=== PATIENT | male | born 1985 | race Caucasian/White ===

== ENCOUNTER 2019-08-31 15:06 | Inpatient (IN) | payer OTHER ==
[~2019-08-31] VITALS: Ht 177.8 cm; Wt 65.1 kg
--- NOTE | 2019-08-31 16:10 | NUR ---
A 34, admitted to , under the services of GARETT Hodgson DO with a diagnosis of OPIATE WITHDRAWAL. Chief complaint is OPIATE WITHDRAWAL. [place] Monitor applied. Initial assessment completed. Vital signs taken and recorded. GARETT HODGSON DO notified of admission to the unit. Orders received. See assessment for past medical history, medications and allergies. Patient and/or family oriented to unit. [facility] policy reviewed. Clothing/patient valuable form completed. GEORGIE NAVAS
--- NOTE | 2019-08-31 16:29 | NUR ---
DR BURKETT IN TO SEE PATIENT AT THIS TIME
--- NOTE | 2019-08-31 16:59 | NUR ---
PATIENT MEETS [facility]. CINA=[id number]. PATIENT IS GOING TO FOLLOW UP WITH [facility] FOR HIS AFTERCARE PLAN. GEORGIE APPLE B.A. COLORED LIQUID PLASTIC APPLIER
[2019-08-31 17:09] VITALS: BP 150/90
--- NOTE | 2019-08-31 17:12 | NUR ---
PT STATES THAT HE DOES NOT WANT/NEED HIS SUBUTEX AT THIS TIME, THAT HE WILL NOT NEED ANYTHING FOR A WHILE, JUST HIS ATIVAN. CALL LIGHT WITHIN REACH, WILL CONTINUE TO MONITOR
[2019-08-31 17:16] LABS: BASO % 0.5 % (0.0-1.0); EOS # 0.1 10*3/uL (0.0-0.4); EOS % 1.3 % (1.0-4.0); HEMATOCRIT 38.9 % (42.0-52.0); LYMPH # 1.2 10*3/uL (1.3-4.4); LYMPH % 15.1 % (27.0-41.0); MEAN CELL VOLUME 87.6 fl (80.0-94.0); MEAN CORPUSCULAR HGB 29.7 pg (27.0-31.0); MEAN CORPUSCULAR HGB CONC 33.9 g/dl (33.0-37.0); MEAN PLATELET VOLUME 8.6 fl (9.6-12.3); MONO # 0.5 10*3/uL (0.1-1.0); MONO % 6.6 % (3.0-9.0); NEUT # 6.1 10*3/uL (2.3-7.9); PLATELET COUNT AUTOMATED 260 10*3/uL (130-400); RED BLOOD COUNT 4.44 10*6/uL (4.50-5.90); RED CELL DISTRI WIDTH 11.9 % (0-14.5)
[2019-08-31 17:28] LABS: BILIRUBIN NEGATIVE (NEGATIVE); CLARITY CLEAR (CLEAR); COLOR YELLOW (YELLOW); GLUCOSE NEGATIVE (NEGATIVE); KETONE NEGATIVE (NEGATIVE)
[2019-08-31 17:29] LABS: BACTERIA 1+; BLOOD NEGATIVE (NEGATIVE); EPITHELIAL CELLS 0-2; LEUKO ESTERASE TRACE (NEGATIVE); MUCOUS 1+; NITRITE NEGATIVE (NEGATIVE); PH 8.5 (5.0-9.0); UROBILINOGEN 0.2 E.U./dl (0.2-1.0)
[2019-08-31 17:32] LABS: ALBUMIN 3.5 gm/dl (3.1-4.5); BUN 6 mg/dl (7-24); CHLORIDE 100 mmol/L (98-107); POTASSIUM 3.9 mmol/L (3.5-5.1); SODIUM 134 mmol/L (136-145)
[2019-08-31 17:36] LABS: ALKALINE PHOSPHATASE 65 U/L (45-117); SGOT/AST 27 IU/L (3-35); SGPT/ALT 37 U/L (12-78); TOTAL PROTEIN 7.1 gm/dL (6.4-8.2)
[2019-08-31 17:38] LABS: ETHYL ALCOHOL < 3.0 mg/dl (<3)
[2019-08-31 19:49] LABS: URINE AMPHETAMINES > 1000 (1000ng/ml); URINE BARBITURATES < 200 (200ng/ml); URINE BENZODIAZEPINES < 200 (200ng/ml); URINE CANNABINOIDS (THC) < 50 (50ng/ml); URINE COCAINE > 300 (300ng/ml); URINE METHADONE < 300 (300ng/ml); URINE OPIATES < 300 (300ng/ml)
[2019-08-31 19:51] LABS: URINE PHENCYCLIDINE < 25 (25ng/ml)
[2019-08-31 20:00] VITALS: BP 156/94
[2019-08-31 20:30] VITALS: BP 144/88
[2019-09-01] VITALS (7 sets, daily range): BP systolic 119–144; BP diastolic 75–97
--- NOTE | 2019-09-01 | NUR ---
PATIENT ATTENDANT SAID WHEN SHE WENT TO DO PATIENT TEMPERATURE PATIENT "SWATTED" AT THE THERMOMETER WHEN SHE ATTEMPTED TO TAKE PATIENT TEMP. PATIENT ACTING LIKE HE'S REALLY OUT OF IT.
--- NOTE | 2019-09-01 03:00 | NUR ---
Patient awakend enough to follow commands to do blood pressure and other vital signs but would not speak to me nor would he wake up enough to take ativan or subutex both meds refused by patient.
--- NOTE | 2019-09-01 04:13 | NUR ---
24 HR chart check completed.
--- NOTE | 2019-09-01 06:11 | NUR ---
PATIENT AWAKE AND TALKING NOW, FEELING "A LITTLE BAD" PER PT. AND IS WILL TO TAKE SUBUTEX. SUBUTEX GIVEN AND DOSE TIMES CHANGED. PT. BACK TO BED.
--- NOTE | 2019-09-01 08:49 | NUR ---
PRN MEDS GIVEN FOR MULTIPLE COMPLAINTS OF ANXIETY, RESTLESS LEGS, AND MUSCLE ACHES. SEE MAR. WILL MONITOR. CALL LIGHT IN REACH.
--- NOTE | 2019-09-01 09:36 | NUR ---
SLEEPING, NO SXS OF DISTRESS NOTED. RESPERATIONS EASY/REGULAR ON ROOM AIR. PRN MEDS SEEM TO BE EFFECTIVE. CALL LIGHT IN REACH.
--- NOTE | 2019-09-01 14:28 | NUR ---
CONTINUED COMPLAINTS OF RESTLESS LEGS. ROBAXIN AND VISARIL GIVEN FOR BODY ACHES AND ANXIETY. CALL LIGHT IN REACH, WILL MONITOR.
--- NOTE | 2019-09-01 15:04 | NUR ---
KD STAFF IN TO SEE PATIENT. PATIENT HAS BEEN ACCEPTED TO [facility] FOR HIS AFTERCARE PLAN. THE FACILITY WILL PROVIDE TRANSPORTATION. PATIENT IS SCHEDULED FOR [facility] ON WEDNESDAY, August. PATIENT AGREES AND UNDERSTANDS HIS AFTERCARE PLAN. GEORGIE APPLE B.A. SALES ORDER SPECIALIST
--- NOTE | 2019-09-01 15:17 | NUR ---
STILL COMPLAINTS OF RESTLESS LEGS BUT STATES PRN MEDS WERE SOMEWHAT HELPFUL. INFORMED THE NEXT REQUIP WILL BE GIVEN TONIGHT IT IS Q12H. CALL LIGHT IN REACH. NO FURTHER COMPLAINTS VOICED.
--- NOTE | 2019-09-01 19:33 | NUR ---
C/O MUSCLE ACHES, ANXIOUS AND SWEATY. MOTRIN ATIVAN GIVEN FOR WITHDRAWL SYMPTOMS. SEE MAR.
--- NOTE | 2019-09-01 20:36 | NUR ---
PER PT. MOTRIN AND ATIVAN HAVE NOT HELPED PATIENT LEGS TWITCHING AND PATIENT VISUALLY ANXIOUS.
--- NOTE | 2019-09-01 21:15 | NUR ---
PT. STILL ANXIOUS AND LEGS MOVING AROUND. VISTARIL AND TRAZADONE GIVEN PER ORDER FOR ANXIETY AND TO HELP PATIENT SLEEP.
--- NOTE | 2019-09-01 22:15 | NUR ---
VISTARIL AND TRAZADONE HELPING REDUCE ANXIETY.
--- NOTE | 2019-09-01 23:55 | NUR ---
24 HR chart check completed.
[2019-09-02] VITALS: BP 124/74
--- NOTE | 2019-09-02 02:35 | NUR ---
PATIENT RESTING EASILY AWAKEND. LEGS MOVING ALL OVER. C/O ANIETY. ATIVAN WAS GIVEN ALONG WITH ROBAXIN FOR MUSCLE ACHES.
--- NOTE | 2019-09-02 03:35 | NUR ---
ROBAXIN HELPING WITH MUSCLE ACHES AND ATIVAN HELPING WITH ANXIETY PER PT.
--- NOTE | 2019-09-02 05:17 | NUR ---
VISTARIL GIVEN PER ORDER FOR BREAKTHROUGH ANXIETY ALONG WITH SUBUTEX. EXPLAINED SUBUTEX TAPER AND THAT HE CAN HAVE ATIVAN/REQUIP/ROBAXIN AT 0830 AND HE VOICED UNDERSTANDING.
--- NOTE | 2019-09-02 06:15 | NUR ---
VISTARIL HELPING WITH ANXIETY BUT PATIENT STILL HAVING SOME. ATIVAN HELPS MORE WITH ANXIETY.
[2019-09-02 08:00] VITALS: BP 104/62
--- NOTE | 2019-09-02 08:49 | NUR ---
PT REQUESTED AND GIVEN REQUIP FOR RESTLESSNESS AND ROBAXIN FOR MUSCLE ACHES WILL MONITOR
--- NOTE | 2019-09-02 09:50 | NUR ---
PT RESTING IN BED/ EYES CLOSED. REQUIP AND ROBAXIN APPEAR TO BE EFFECTIVE. WILL CONT TO MONITOR
--- NOTE | 2019-09-02 11:07 | NUR ---
PT STATES HE HAS A HEADACHE. PT OFFERED MOTRIN PT REFUSES TO TAKE ANYTHING
[2019-09-02 12:00] VITALS: BP 98/59
[2019-09-02 16:00] VITALS: BP 107/65
[2019-09-02 20:00] VITALS: BP 128/83
--- NOTE | 2019-09-02 20:56 | NUR ---
PATIENT SLEEPING AT THIS TIME. WILL NOT DISTURB.
--- NOTE | 2019-09-02 22:26 | NUR ---
PM SCHEDULED SUBUTEX AND ATIVAN GIVEN AT THIS TIME. PT ALSO REQUEST MEDICATIONS FOR RESTLESS LEGS, MUSCLE SPASM AND INSOMNIA. PRN ROBAXIN, REQUIP AND TRAZODONE GIVEN. WILL MONITOR.
--- NOTE | 2019-09-03 | NUR ---
PRN MEDS EFFECTIVE. PT SLEEPING. RESPS EASY AND REG ON ROOM AIR.
--- NOTE | 2019-09-03 05:53 | NUR ---
scheduled ativan given per orders. pt states he did not sleep well and "no i dont need anything, close the door". will continue to monitor.
[2019-09-03 08:00] VITALS: BP 110/68
--- NOTE | 2019-09-03 08:20 | NUR ---
PT RESTING IN BED. NO DISTRESS NOTED. WILL MONITOR
--- NOTE | 2019-09-03 10:06 | NUR ---
pt medicated with robaxin for muscle aches and vistaril for anxiety and requip for restlessness will monitor
--- NOTE | 2019-09-03 11:00 | NUR ---
pt resting in bed, eyes closed. vistaril, robaxin and requip appear effective. will monitor
[2019-09-03 16:00] VITALS: BP 119/81
--- NOTE | 2019-09-03 21:10 | NUR ---
PATIENT ASSESSMENT COMPLETED AT THIS TIME WITHOUT INCIDENT, AT THIS TIME PATIENT COMPLAINING OF NAUSEA, LEG CRAMPS, AND ANXIETY WHICH HE WAS MEDICATED FOR SEE EMAR FOR ADMINISTERED MEDICATIONS. CALL LIGHT WITHIN REACH, WILL CONTINUE TO MONITOR.
--- NOTE | 2019-09-03 22:20 | NUR ---
PATIENT RESTING IN BED AT THIS TIME, WHEN ASKED ABOUT EFFECTIVENESS OF PRN MEDICATIONS GIVEN FOR NAUSEA, ANXIETY, RESTLESS LEG AND SLEEP THE PATIENT STATED THAT "NOTHING HELPS THIS, I'M DOPE SICK, THIS IS TOTAL BULLSHIT I'M JUST GONNA GET THE HELL OUT OF HERE NOW". PATIENT ADVISED THAT HE CAN LEAVE AMA ANYTIME HE WISHED TO LEAVE, PAPERWORK PRINTED AND PRESENTED TO PATIENT WHO DENIED WANTING TO LEAVE AMA AT THAT TIME. WILL CONTINUE TO MONITOR.
--- NOTE | 2019-09-03 23:42 | NUR ---
24 HOUR CHART CHECK COMPLETE
[2019-09-04] VITALS: BP 118/65
[2019-09-04 08:00] VITALS: BP 116/78
--- NOTE | 2019-09-04 08:30 | NUR ---
Pt uncooperative and tells this nurse "to come back later". Resp easy and nonlabored on RA. No distress noted. Call light in reach. will monitor
[2019-09-04] MEDS ORDERED: ATARAX,VISTARIL50 MG PO (10:56)
[2019-09-04] MEDS ORDERED: ZOFRAN4 MG PO (10:56)
--- NOTE | 2019-09-04 11:00 | NUR ---
Pt refused am meds. Dr Dillon edgar.
--- NOTE | 2019-09-04 13:54 | NUR ---
Discharge instructions reviewed with patient/family. Patient receptive and verbalizes understanding. Follow-up care arranged. Written instructions given to patient/family. SHARON FARLEY
== END 2019-09-04 13:54 | disposition home or self-care (01) | DRG 773 ==
LOC: 4E 15:06
PROVIDERS: Internal Medicine; ADMIT Internal Medicine
DX: F11.23 Opioid dependence with withdrawal (principal); E87.1 Hypo-osmolality and hyponatremia; F14.10 Cocaine abuse, uncomplicated; F17.210 Nicotine dependence, cigarettes, uncomplicated; F15.10 Other stimulant abuse, uncomplicated; B18.2 Chronic viral hepatitis C; D64.9 Anemia, unspecified; Z82.3 Family history of stroke; Z82.49 Family history of ischemic heart disease and other diseases of the circulatory system; Z71.6 Tobacco abuse counseling

== ENCOUNTER 2019-12-14 15:19 | Inpatient (IN) | payer OTHER ==
[~2019-12-14] VITALS: Ht 180.3 cm; Wt 63.5 kg
[~2019-12-14 15:19] MED LIST: ATARAX,VISTARIL50 MG PO; ZOFRAN4 MG PO
[2019-12-14 16:50] VITALS: BP 139/80
[2019-12-14 18:42] LABS: BILIRUBIN NEGATIVE (NEGATIVE); BLOOD NEGATIVE (NEGATIVE); CLARITY SL CLOUDY (CLEAR); COLOR YELLOW (YELLOW); GLUCOSE NEGATIVE (NEGATIVE); KETONE NEGATIVE (NEGATIVE); SPECIFIC GRAVITY 1.025 (1.005-1.030)
[2019-12-14 18:43] LABS: LEUKO ESTERASE NEGATIVE (NEGATIVE); NITRITE NEGATIVE (NEGATIVE)
[2019-12-14 18:47] LABS: BACTERIA 1+; EPITHELIAL CELLS 0-2; MUCOUS TRACE; RBC 0-2 rbc/hpf (0-2)
[2019-12-14 18:48] LABS: URINE AMPHETAMINES > 1000 (1000ng/ml); URINE BARBITURATES < 200 (200ng/ml); URINE BENZODIAZEPINES > 200 (200ng/ml); URINE CANNABINOIDS (THC) < 50 (50ng/ml); URINE COCAINE > 300 (300ng/ml); URINE METHADONE < 300 (300ng/ml); URINE OPIATES < 300 (300ng/ml); URINE PHENCYCLIDINE < 25 (25ng/ml)
[2019-12-14 18:50] LABS: BASO # 0.1 10*3/uL (0.0-0.1); BASO % 0.8 % (0.0-1.0); EOS # 0.1 10*3/uL (0.0-0.4); EOS % 1.5 % (1.0-4.0); HEMATOCRIT 39.9 % (42.0-52.0); LYMPH # 1.5 10*3/uL (1.3-4.4); LYMPH % 17.7 % (27.0-41.0); MEAN CORPUSCULAR HGB 28.7 pg (27.0-31.0); MEAN CORPUSCULAR HGB CONC 33.3 g/dl (33.0-37.0); MEAN PLATELET VOLUME 8.4 fl (9.6-12.3); MONO # 0.7 10*3/uL (0.1-1.0); MONO % 8.1 % (3.0-9.0); NEUT % 71.2 % (47.0-73.0); PLATELET COUNT AUTOMATED 299 10*3/uL (130-400); RED BLOOD COUNT 4.64 10*6/uL (4.50-5.90); RED CELL DISTRI WIDTH 12.1 % (0-14.5); WHITE BLOOD COUNT 8.4 10*3/uL (4.8-10.8)
[2019-12-14 19:06] LABS: ALBUMIN 3.7 gm/dl (3.1-4.5); ALKALINE PHOSPHATASE 84 U/L (45-117); BUN 12 mg/dl (7-24); CHLORIDE 104 mmol/L (98-107); CREATININE 0.79 mg/dL (0.70-1.30); POTASSIUM 3.5 mmol/L (3.5-5.1); SGOT/AST 22 IU/L (3-35); SGPT/ALT 37 U/L (12-78); SODIUM 137 mmol/L (136-145)
[2019-12-14 19:07] LABS: ETHYL ALCOHOL < 3.0 mg/dl (<3)
[2019-12-14 20:00] VITALS: BP 114/71
[2019-12-15] VITALS: BP 119/86
[2019-12-15 08:00] VITALS: BP 128/78
== END 2019-12-15 13:20 | disposition left against medical advice (07) | DRG 770 ==
LOC: 5E 15:19
PROVIDERS: Physical Therapist; ADMIT Internal Medicine
DX: F11.23 Opioid dependence with withdrawal (principal); F15.93 Other stimulant use, unspecified with withdrawal; F17.210 Nicotine dependence, cigarettes, uncomplicated; E87.1 Hypo-osmolality and hyponatremia; F14.10 Cocaine abuse, uncomplicated; B18.2 Chronic viral hepatitis C; D64.9 Anemia, unspecified; F19.10 Other psychoactive substance abuse, uncomplicated; J00 Acute nasopharyngitis [common cold]; Z53.29 Procedure and treatment not carried out because of patient's decision for other reasons; Z71.6 Tobacco abuse counseling; Z82.3 Family history of stroke